=== PATIENT | female | born 1995 | race Caucasian/White ===

== ENCOUNTER 2019-12-13 15:36 | Observation (INO) | payer OTHER, SELFPAY ==
[2019-12-13] VITALS (9 sets, daily range): BP systolic 97–116; BP diastolic 59–71; PULSE 61–101; RESP 14–18; TEMP 36.4–37.5; O2SAT 96–100; BMI 20.1
--- NOTE | 2019-12-13 15:49 | ED.VIS.GEN ---
History of Present Illness Informant: Patient Onset: Days Timing: Intermittent Narrative: 24-year-old female with no past medical history presents with abdominal pain. States 3 days ago she developed bilateral lower quadrant abdominal pain that was sharp and cramping and woke her from sleep. It is occurred intermittently since then but has been less severe. Eating makes it worse. This morning she had 3 episodes of nonbloody diarrhea. Denies fevers, chills, chest pain, dyspnea, cough, nausea, vomiting, or urinary symptoms. She is breast-feeding and LMP was 8 months ago before the of her child. No history of abdominal surgeries. <Khloe Mckeon - Last Filed: 12/13/19 17:51> <Edward Anderson - Last Filed: 12/13/19 22:02> Chief Complaint: Abd Pain Past Medical History Past Medical History: None Surgical History: no surgical history <Khloe Mckeon - Last Filed: 12/13/19 17:51> <Edward Anderson - Last Filed: 12/13/19 22:02> - Allergies and Home Meds Allergies/Adverse Reactions: Allergies No Known Allergies Allergy (Verified 12/13/19 15:37) Review of Systems General: Denies: Chills, Fever, Sweats Eyes: Denies: Visual changes - bilaterally, Diplopia ENT: Denies: Rhinorrhea, Sore throat Cardiovascular: Denies: Chest pain, Palpitations Respiratory: Denies: Dyspnea, Cough, Dyspnea on exertion Gastrointestinal: Reports: Abdominal pain, Diarrhea. Denies: Nausea, Vomiting, Constipation, Melena, Hematochezia Genitourinary: Denies: Dysuria, Hematuria, Frequency Musculoskeletal: Denies: Back pain, Extremity Pain Skin: Denies: Rash, Wounds Neurological: Denies: Headache, Weakness, Numbness <Khloe Mckeon - Last Filed: 12/13/19 17:51> Physical Exam Vital Signs/Narrative: Vital Signs Temp Pulse Resp BP Pulse Ox 12/13/19 15:38 97.8 F 101 H 15 107/71 99 Inital Vital Signs reviewed: Yes General: Well nourished, Well developed, No Acute Distress Head: Normocephalic, Atraumatic Eyes: EOMI ENT: Moist mucous membranes, No rhinorrhea Neck: Supple, Nontender Cardiovascular: Regular rate, Regular rhythm, No murmurs Respiratory: No distress, CTA bilaterally, Chest nontender Abdomen: Soft, Normal bowel sounds, Tender, - - Diffuse abdominal tenderness to palpation, maximal in epigastric and bilateral lower quadrants. Soft with no guarding or rebound.. Negative for: Guarding, Rebound tenderness <Khloe Mckeon - Last Filed: 12/13/19 17:51> Vital Signs/Narrative: Vital Signs Temp Pulse Resp BP Pulse Ox 12/13/19 21:45 98.9 F 76 16 103/66 96 12/13/19 21:30 74 16 108/64 98 12/13/19 21:18 97.6 F L 81 16 102/61 100 12/13/19 20:12 98.8 F 61 14 108/71 99 12/13/19 19:24 98.8 F 91 14 108/71 99 12/13/19 19:00 84 18 108/63 99 <Edward Anderson - Last Filed: 12/13/19 22:02> Diagnostic/Tx/Re-eval Laboratory Data 12/13/19 12/13/19 12/13/19 15:55 15:55 16:00 WBC 12.7 H RBC 4.32 Hgb 12.7 Hct 39.2 MCV 90.7 MCH 29.4 MCHC 32.4 RDW Std Deviation 41.5 RDW Coeff of Maria Guadalupe 12.4 Plt Count 181 MPV 9.5 Immature Gran % (Auto) 0.600 Neut % (Auto) 89.7 H Lymph % (Auto) 5.2 L [place] % (Auto) 4.3 Eos % (Auto) 0.1 Baso % (Auto) 0.1 Absolute Neuts (auto) 11.4 H Absolute Lymphs (auto) 0.66 L Nucleated RBC % 0 Sodium 138 Potassium 3.7 Chloride 106 Carbon Dioxide 24.0 Anion Gap 8 BUN 12 Creatinine 0.74 Estim Creat Clear Calc 104.74 Est GFR (MDRD) Af Amer 124 Est GFR (MDRD) Non-Af 102 BUN/Creatinine Ratio 16.3 Glucose 92 Calcium 9.0 Total Bilirubin 1.20 H AST 13 L ALT 9 L Alkaline Phosphatase 71 Total Protein 7.7 Albumin 3.9 Globulin 3.8 Albumin/Globulin Ratio 1.0 Lipase 61 L Urine Color Yellow Urine Clarity Sl. Cloudy Urine pH 5.0 Ur Specific [place] 1.020 Urine Protein 30 H Urine Glucose (UA) Normal Urine Ketones 50 H Urine Occult Blood 10 H Urine Nitrite Negative Urine Bilirubin 1 H Urine Urobilinogen 1 H Ur Leukocyte Esterase 100 H Urine RBC 0 SEEN Urine WBC 5-10 SEEN Ur Squamous Epith Cells 5-10 SEEN Urine Bacteria RARE Urine Mucus 1+ Urine Test Negative - Medical Decision Making Patient appears well nontoxic. Vital signs show tachycardia of 101, otherwise normal. Abdominal exam has generalized tenderness, maximal over RLQ with no peritoneal signs. Labs show leukocytosis. Mildly elevated total bilirubin. Otherwise chemistry is normal. Urinalysis and hcg negative. CT scan will be obtained to rule out appendicitis. <Khloe Mckeon - Last Filed: 12/13/19 17:51> - Medical Decision Making Patient was seen with the PA. She initially did evaluate her in order lab work. On my examination she had right lower quadrant tenderness. I ordered a CT scan with p.o. and IV contrast. Patient's lab work is reviewed and she has a slight leukocytosis of 12.9. CT abdomen pelvis does show acute appendicitis. Patient was discussed with Dr. Pastor. He took the patient to the OR for appendectomy. She was stable on transfer. Impression: 1. Appendicitis <Edward Anderson - Last Filed: 12/13/19 22:02> ED Disposition <Khloe Mckeon - Last Filed: 12/13/19 17:51> <Edward Anderson - Last Filed: 12/13/19 22:02> - Plan for ED Patient: Disposition: Acute Care [facility]
[2019-12-13] MEDS: Ketorolac 30 MG/ML Syringe IV (16:05)
[2019-12-13 16:06] LABS: Absolute Lymphocyte Count 0.66 X10^3/uL (0.83-4.51); Absolute Neutrophil Count 11.4 X10^3/uL (2.0-7.7); Basophil# 0.01 X10^3/uL; Basophil% 0.1 % (0-1); Eosinophil# 0.01 X10^3/uL; Eosinophils% 0.1 % (0-5); Hematocrit 39.2 % (37-47); Hemoglobin 12.7 g/dL (12.0-15.0); Lymphocyte # 0.66 X10^3/ul (4.0); Lymphocyte % 5.2 % (19-41); Mean Corp Hgb Conc 32.4 g/dL (32-36); Mean Corpuscular Hgb 29.4 pg (27.0-32.0); Mean Corpuscular Volume 90.7 fL (81-99); Mean Platelet Vol. 9.5 fl (6.2-12.0); Monocyte# 0.55 X10^3/uL; Monocyte% 4.3 % (0-10); NRBC Flagged by Analyzer 0 % (0-5); Neutrophil # 11.42 X10^3/uL (2.7-7.7); Neutrophil % 89.7 % (47-70); Platelet Count 181 K/mm3 (150-450); RBC Distribution Width CV 12.4 % (11.6-14.6); RBC Distribution Width SD 41.5 fl (35.1-43.9); Red Blood Count 4.32 M/mm3 (4.2-5.4); White Blood Count 12.7 K/mm3 (4.4-11.0)
[2019-12-13 16:07] LABS: Red Blood Cells-Urine 0 SEEN /hpf (0-5)
[2019-12-13 16:14] LABS: Color, Urine Yellow (Yellow); Glucose, Dipstick Normal (Normal); Internal QC Validated? YES +Cl - CLEAR BKGD; Ketone-Dipstick 50 mg/dl (Negative); Leukocyte Esterase-Dipstick 100 /ul (Negative); Nitrite-Dipstick Negative (Negative); Occult Blood-Urine 10 /ul (Negative); Pregnancy, Urine Negative Negative; Protein-Dipstick 30 mg/dl (Negative); Urine Clarity Sl. Cloudy (Clear); Urine Urobilinogen 1 mg/dl (Normal)
[2019-12-13 16:23] LABS: Urine Bilirubin Dipstick 1 mg/dL (Negative)
[2019-12-13 16:26] LABS: Bacteria RARE /hpf (None Seen); Mucous, Urine 1+ /hpf (<or=2+); Squamous Epithelial Cells - UA 5-10 SEEN /hpf (5-10); White Blood Cells 5-10 SEEN /hpf (0-5)
--- NOTE | 2019-12-13 16:32 | CT_ITS ---
STUDY: CT ABDOMEN AND PELVIS WITH CONTRAST REASON FOR EXAM: Female, 24 years old. Lower abdominal pain. Diarrhea. RADIATION DOSAGE (If Supplied By Facility): CTDIvol = ( 8 ) mGy, DLP = ( 408 ) mGycm TECHNIQUE: Transaxial images were obtained from the dome of the diaphragm to the symphysis pubis with oral contrast. 100 ml of ISOVUE-370 contrast was administered. Sagittal and coronal images were reconstructed. Individualized dose optimization techniques were used for this CT. COMPARISON: None. FINDINGS: The visualized lung bases are clear. The visualized portions of the heart and pericardium are within normal limits. The gallbladder is distended. There are small gallstones noted. The liver is within normal limits. There are no suspicious hepatic lesions. The spleen is normal in size. The pancreas is within normal limits. The adrenal glands are within normal limits. There are no renal or ureteral stones. There is no hydronephrosis. There are no focal renal lesions. Normal visualized stomach. There is no bowel obstruction or inflammation. The appendix is thickened, measuring up to 1 cm. The appendix does not fill with contrast. This is consistent with acute appendicitis. The aorta is normal in caliber. There is no abdominal or pelvic free air, free fluid, fluid collection or lymphadenopathy. There are no destructive osseous lesions. CT/Abdomen/Pelvis WITH Contrast IMPRESSION: Acute appendicitis without evidence of perforation or abscess formation. Distended gallbladder. Gallstones. Normal kidneys. No hydronephrosis. N.B. : The above information has been verbally conveyed by Yobany Cordon to MD Jason, on 12/13/2019 18:52:23 (ET). Electronically Signed: Yobany Cordon, at 18:53 EDT Tel , Service support ,
[2019-12-13 16:51] LABS: AST(SGOT) 13 U/L (15-37); Alanine Aminotransfer ALT/SGPT 9 U/L (13-56); Albumin, Serum 3.9 g/dL (3.2-5.0); Alkaline Phosphatase 71 U/L (45-117); Anion Gap 8 (5-15); BUN 12 mg/dL (7-18); BUN/Creat Ratio 16.3 RATIO (10-20); Chloride 106 mmol/L (98-107); Creatinine, Serum 0.74 mg/dL (0.55-1.02); EST Glomerular Filtration Rate 102 mL/min (>60); Est Glom Filt Rate - Afr Amer 124 mL/min (>60); Estimated Creatinine Clearance 104.74 ml/min; Globulin 3.8 g/dL (2.2-4.2); Glucose 92 mg/dL (74-106); Lipase 61 U/L (73-393); Potassium 3.7 mmol/L (3.5-5.1); Protein, Total 7.7 g/dL (6.4-8.2); Sodium Level 138 mmol/L (136-145)
--- NOTE | 2019-12-13 19:48 | HP.PCM_ITS ---
Problem List (1) Acute appendicitis Status: Acute Qualifiers: Acute appendicitis type: with localized peritonitis Appendicitis perforation presence: unspecified whether perforation present Appendicitis abscess presence: unspecified whether abscess present History of Present Illness Date of Admission: 12/13/19 The patient is a 24 year old F who presents with a 3-day history of abdominal pain. On later in the day she developed diffuse abdominal pain with localization of the right lower quadrant. She has been ill then Sunday and Sunday decided to come to the emergency room. She denies any fever there is been no nausea or vomiting she has had decreased appetite. She tried to eat some for lunch but the pain increased. She has not had a previous illness. She is and breast-feeding her child. She denies any history of gallbladder disease or right upper quadrant pain. Laboratory demonstrates a leukocytosis of 12,000. A CT scan suggested dilated appendix consistent with acute appendicitis. On my personal review it appears that there is a retrocecal component deep in the pelvis with significant amount of periappendiceal change. Is not clear whether this is abscess or perforation or cystic ovarian disease. The patient has not had previous abdominal surgery. 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 Denies: Fever HEENT: Denies: Difficulty Swallowing Cardiovascular: Denies: Chest Pain Respiratory: Denies: Cough, Shortness of Breath Gastrointestinal: Reports: Abdominal Pain, Diarrhea Genitourinary: Denies: Dysuria Neurological: Denies: Balance problems Endocrine: Denies: Change in Body Habitus VTE Information - Inpt Only VTE Present on Admission: No Patient Problems: Active and Suspected Problems Acute appendicitis (Acute) - Physical Exam Vitals/I&O's: Vital Signs Temp Pulse Resp BP Pulse Ox 98.8 F 91 14 108/71 99 12/13/19 19:24 12/13/19 19:24 12/13/19 19:24 12/13/19 19:24 12/13/19 19:24 Oxygen Delivery Method Room Air Weight: 124 lb 12.506 oz Body Mass Index (BMI) 20.1 General: Alert, Oriented x3, Cooperative, No apparent distress HEENT: Atraumatic Oral: Moist Mucosa Neck: Supple Lungs: Clear to auscultation, Normal air movement Cardiovascular: Regular rate, Regular Rhythm Abdomen: Soft, - - Nontender to palpation right upper quadrant, tender to palpation right lower quadrant with fullness, hypoactive bowel sounds Extremities: No Calf Tenderness Skin: No rashes Neurological: - - Normal cognition Psych/Mental Status: Normal Affect Laboratory Results 12/13/19 15:55: WBC 12.7 H, RBC 4.32, Hgb 12.7, Hct 39.2, MCV 90.7, MCH 29.4, MCHC 32.4, RDW Std Deviation 41.5, RDW Coeff of Maria Guadalupe 12.4, Plt Count 181, MPV 9.5, Immature Gran % (Auto) 0.600, Neut % (Auto) 89.7 H, Lymph % (Auto) 5.2 L, [place] % (Auto) 4.3, Eos % (Auto) 0.1, Baso % (Auto) 0.1, Absolute Neuts (auto) 11.4 H, Absolute Lymphs (auto) 0.66 L, Nucleated RBC % 0 12/13/19 15:55: Sodium 138, Potassium 3.7, Chloride 106, Carbon Dioxide 24.0, Anion Gap 8, BUN 12, Creatinine 0.74, Estim Creat Clear Calc 104.74, Est GFR (MDRD) Af Amer 124, Est GFR (MDRD) Non-Af 102, BUN/Creatinine Ratio 16.3, Glucose 92, Calcium 9.0, Total Bilirubin 1.20 H, AST 13 L, ALT 9 L, Alkaline Phosphatase 71, Total Protein 7.7, Albumin 3.9, Globulin 3.8, Albumin/Globulin Ratio 1.0, Lipase 61 L 12/13/19 16:00: Urine Color Yellow, Urine Clarity Sl. Cloudy, Urine pH 5.0, Ur Specific [place] 1.020, Urine Protein 30 H, Urine Glucose (UA) Normal, Urine Ketones 50 H, Urine Occult Blood 10 H, Urine Nitrite Negative, Urine Bilirubin 1 H, Urine Urobilinogen 1 H, Ur Leukocyte Esterase 100 H, Urine RBC 0 SEEN, Urine WBC 5-10 SEEN, Ur Squamous Epith Cells 5-10 SEEN, Urine Bacteria RARE, Urine Mucus 1+, Urine Test Negative Current Medications Lactated Ringer's () 1,000 mls @ 100 mls/hr IV .Q10H ONE Stop: 12/14/19 05:34 Piperacillin Sod/Tazobactam (Sod 4.5 gm/ Sodium Chloride) 100 mls @ 150 mls/hr IV X1 ONE Stop: 12/13/19 20:14 Assessment/Plan All Active Problems Acute appendicitis (Acute) Findings are consistent with acute appendicitis. It appears to be retrocecal deeply located in the pelvis. There may indeed be periappendiceal inflammatory changes. Cannot exclude perforation. I recommended the patient a laparoscopic appendectomy with possible conversion to an open technique if indicated. They are aware of the technique, benefit, risk, alternatives. We discussed COVID-19. They deny any known exposure. They are aware that the [facility] is currently reporting a low local incidence. We will initiate therapeutic antibiotics and proceed with definitive surgery. Camacho Pastor M.D., F.A.C.S.
--- NOTE | 2019-12-13 19:53 | DCINST_ITS ---
Discharge Diet: Light diet - advance as tolerated - if you have questions about your diet instructions, please talk to you doctor. Discharge Activity: May Not Drive - for 1 week or while taking narcotic pain medicine. May shower in (days): 1 Lifting Restrictions: 10 pounds Call your doctor if your incision/area has: Continuous Slow Oozing, Sudden Increased Bleeding, Increased Pain/ Swelling, Increased Redness, Foul Smelling Discharge Call your doctor if you observe: Fever of 101 or Higher Suture Line Care: Avoid Pulling/Pushing, Avoid Pinching/Bending Additional Dressing/Incision Instructions:: Change or remove dressing in 3 days. Leave steri-strips in place for 1 week. Allergies/Adverse Reactions: Allergies No Known Allergies Allergy (Verified 12/13/19 15:37) Medications to take at Discharge NK 12/13/19 Primary Care Physician: Demetrius Penn DO [Primary Care Provider] - Test Results: Test results from this visit will be discussed in further detail at your follow- up appointment, if applicable. Please Follow Up With: Camacho Pastor MD - [phone] When: Call for appt. this may be phone call or virtual or onsite
[2019-12-13] MEDS: Piperacil/Tazobactam 4.5 GM in NS100 MBP IV (19:54)
[2019-12-13] MEDS: Lactated Ringers 1,000 ML 100 ML IV ×2 (19:54→21:40)
--- NOTE | 2019-12-13 20:00 | APP_PTH ---
PATIENT: MALIKA NELSON LOC: MS3 U#:[id number] AGE/SX: 24/F ROOM: MS316 RE12/13/[address]: Dr. Camacho Pastor MD : [id number] BED: 1 DIS: 12/14/2019 SPEC #: [id number] RECD: 12/15/19 09:26 STATUS: FELISHA REDee Dee #: [id number] [place]: 12/13/19 20:[address]: Camacho Pastor DEPT: SURGICAL PATHOLOGY RECD BY: Heladio Panchal ENTERED: 12/15/19 10:58 SP TYPE: APPENDIX OTHR DR: Dr. Demetrius Penn DO Tissues: Appendix, NOS Procedures: Surgery Specimen Level III HEADER OPERATION: Laparoscopic appendectomy PRE-OP DIAGNOSIS: Acute appendicitis TISSUE SUBMITTED: Appendix MICROSCOPIC DIAGNOSIS Appendix, appendectomy: Acute appendicitis. Marked acute serositis. AM:cameron 12/16/19 MICROSCOPIC DESCRIPTION Slides are reviewed. GROSS DESCRIPTION Received in fixative is one container labeled with the patient's name and designated appendix. The specimen consists of an appendix measuring 6 cm in length and varies in diameter from 1 to 1.5 cm. No gross perforations are evident. Serial sections reveal a patent lumen with fecal material. No mass lesion is identified. Rotor Blade Installer sections are submitted in one cassette. / AM:cameron 12/15/19 TC:2 CPT: 11179
[2019-12-13] MEDS: Bupivacaine Mpf 0.5% 30 ML VIAL (20:20)
--- NOTE | 2019-12-13 21:00 | OP.PCM_ITS ---
Problem List (1) Acute appendicitis Status: Acute Qualifiers: Acute appendicitis type: with localized peritonitis Appendicitis perforation presence: with perforation Appendicitis abscess presence: with abscess Report of Operation Date of Procedure: 12/13/19 Pre-Operative Diagnosis: Acute appendicitis Post-Operative Diagnosis: Acute perforated appendicitis with localized peritonitis small abscess Surgery/Procedure Performed:: Laparoscopic appendectomy Description of Surgical Findings:: Timeout and informed consent was obtained. 24-year-old female was taken to the operating room placed upon the table underwent general endotracheal intubation anesthesia. Zosyn 4.5 g were already given intravenously. The abdomen was sterilely prepped and draped. 0.5% Marcaine was used as a local anesthetic. Skin sites were pre-anesthetized. A total of 25 cc was used. A vertical infraumbilical incision was created holding sutures of 0 Vicryl placed varies needle inserted saline drop test performed. The abdomen was insufflated with CO2 to a pressure of 10 mmHg pressure. 10 mm trocar inserted. 10 mm lap aroscope inserted. Under direct physician 5 mm ports were placed suprapubically in the low mid abdomen. Inspection revealed a very low-lying cecum that was grossly distended. Gallbladder was distended but did not appear to be acutely inflamed. The appendix was adherent to the right tube and ovary and there was clear perforation with a small localized abscess. I aspirated as much of the purulence as I could to send for Gram stain culture and sensitivity. I then mobilized the appendix. I made a window in the mesoappendix. Used a 45 mm stapler to transect the appendix flush with the cecum. A vascular height stapler was used to transect the mesoappendix. The appendix was placed in a retrieval bag. The right lower quadrant was inspected. The ind[place]-tubal ovarian area was irrigated aspirated free. There was inflammatory changes but no significant residual abscess wall. No residual purulence. I was able to irrigate and aspirate that free. I elected not to leave a drain. The staple lines were inspected and were nicely intact. The appendix was removed at the umbilicus after antiviral valve decompression. The fascia at the umbilicus approximated with 2-0 Vicryl [id number] suture. Skin edges approximated opted for Monocryl subdermal stitches. Steri-Strips Telfa OpSite dressings applied. Sponge and instrument and needle counts were reported to the surgeon to be correct. Specimens appendix. Abscess fluid for culture and sensitivity. Drains none. Blood loss minimal. Camacho Pastor M.D., F.A.C.S. Type of Anesthesia:: General Anesthesiologist: Tono Longoria
[2019-12-13] MEDS: Ondansetron 4 MG/2 ML Vial IV (22:43)
--- NOTE | 2019-12-13 22:57 | NURSING ---
encouraged to try and find a ride. unable to find a ride. 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 Pt requested a breast pump-notified charge authorizer. Breast pump delivered to room.
--- NOTE | 2019-12-13 23:37 | NURSING ---
pt walked a full lap in the elaine. tolerated well. Returned to bed. SCD's applied.
[2019-12-13] MEDS: 0.9% Saline Lock 10 ML Syringe IV (23:38)
[2019-12-14] VITALS (8 sets, daily range): BP systolic 102–116; BP diastolic 58–72; PULSE 78–97; RESP 16–20; TEMP 36.6–37.2; O2SAT 97–100
--- NOTE | 2019-12-14 06:46 | PN.SURG_ITS ---
Patient Problems: Active and Suspected Problems Acute appendicitis (Acute) Subjective: Postop day 1 The patient states she has a pain level of 2. No nausea. She is really comfortable. No flatus. - Physical Exam Vitals/I&O's: Vital Signs Temp Pulse Resp BP Pulse Ox 98.7 F 96 16 102/58 L 98 12/14/19 02:34 12/14/19 02:34 12/14/19 02:34 12/14/19 02:34 12/14/19 02:34 Oxygen Delivery Method Room Air Weight: 124 lb 12.506 oz Body Mass Index (BMI) 20.1 Intake and Output for Last 24 Hours 12/12/19 12/13/19 12/14/19 23:59 23:59 23:59 Intake Total 1321.67 / 1321.67 1243.33 / 1243.33 Output Total 0 / 0 100 / 100 Balance 1321.67 / 1321.67 1143.33 / 1143.33 General: Alert, Oriented x3, Cooperative, No apparent distress Lungs: Clear to auscultation, Normal air movement Abdomen: Soft, Non Tender, Hypoactive Bowel Sounds, Distended, - - Incisions are clean and dry Laboratory Results 12/13/19 15:55: WBC 12.7 H, RBC 4.32, Hgb 12.7, Hct 39.2, MCV 90.7, MCH 29.4, MCHC 32.4, RDW Std Deviation 41.5, RDW Coeff of Maria Guadalupe 12.4, Plt Count 181, MPV 9.5, Immature Gran % (Auto) 0.600, Neut % (Auto) 89.7 H, Lymph % (Auto) 5.2 L, [place] % (Auto) 4.3, Eos % (Auto) 0.1, Baso % (Auto) 0.1, Absolute Neuts (auto) 11.4 H, Absolute Lymphs (auto) 0.66 L, Nucleated RBC % 0 12/13/19 15:55: Sodium 138, Potassium 3.7, Chloride 106, Carbon Dioxide 24.0, Anion Gap 8, BUN 12, Creatinine 0.74, Estim Creat Clear Calc 104.74, Est GFR (MDRD) Af Amer 124, Est GFR (MDRD) Non-Af 102, BUN/Creatinine Ratio 16.3, Glucose 92, Calcium 9.0, Total Bilirubin 1.20 H, AST 13 L, ALT 9 L, Alkaline Phosphatase 71, Total Protein 7.7, Albumin 3.9, Globulin 3.8, Albumin/Globulin Ratio 1.0, Lipase 61 L 12/13/19 16:00: Urine Color Yellow, Urine Clarity Sl. Cloudy, Urine pH 5.0, Ur Specific [place] 1.020, Urine Protein 30 H, Urine Glucose (UA) Normal, Urine Ketones 50 H, Urine Occult Blood 10 H, Urine Nitrite Negative, Urine Bilirubin 1 H, Urine Urobilinogen 1 H, Ur Leukocyte Esterase 100 H, Urine RBC 0 SEEN, Urine WBC 5-10 SEEN, Ur Squamous Epith Cells 5-10 SEEN, Urine Bacteria RARE, Urine Mucus 1+, Urine Test Negative 12/14/19 05:34: WBC Pending, RBC Pending, Hgb Pending, Hct Pending, MCV Pending, MCH Pending, MCHC Pending, RDW Std Deviation Pending, RDW Coeff of Maria Guadalupe Pending, Plt Count Pending, Neut % (Auto) Pending, Absolute Neuts (auto) Pending Current Medications Acetaminophen (Tylenol) 650 mg PO Q6H PRN PRN PRN Reason: Pain Score 1-10/10 Piperacillin Sod/Tazobactam (Sod 3.375 gm/ Sodium Chloride) 50 mls @ 12.5 mls/hr IV Q8 LITTLE Last Admin: 12/14/19 05:53 Dose: 12.5 mls/hr Documented by: Sodium Chloride () 250 mls @ 15 mls/hr IV .[id number] PRN PRN Reason: Saline Flush Sodium Chloride () 250 mls @ 15 mls/hr IV .[id number] PRN PRN Reason: Additional IVPB Infusion Sodium Chloride () 250 mls @ 15 mls/hr IV .[id number] PRN PRN Reason: Saline Flush Sodium Chloride () 250 mls @ 15 mls/hr IV .[id number] PRN PRN Reason: Additional IVPB Infusion Morphine Sulfate () 2 - 4 mg IV Q2H PRN PRN PRN Reason: Pain Score 1-10/10 Morphine Sulfate () 2 - 4 mg IV Q2H PRN PRN PRN Reason: Pain Score 1-10/10 Ondansetron HCl (Zofran) 4 mg IV Q8H PRN PRN PRN Reason: NAUSEA Last Admin: 12/13/19 22:43 Dose: 4 mg Documented by: Oxycodone HCl (Oxyir) 5 - 10 mg PO Q4H PRN PRN PRN Reason: Pain Score 1-10/10 Sodium Chloride () 10 - 40 ml IV UD PRN PRN Reason: SALINE FLUSH Last Admin: 12/13/19 23:38 Dose: 10 ml Documented by: Medical Necessity - Tobacco Use Smoking Status: Never smoker Tobacco Use: Non-smoker Assessment/Plan All Active Problems Acute appendicitis (Acute) Patient is making steady progress status post laparoscopic appendectomy for locally perforated appendicitis. Laboratories pending. I will advance to full liquids. Patient is continued to encouraged to mobilize. I will recheck with the patient later today. Pending progress may be able to discharge later. Camacho Pastor M.D., F.A.C.S.
[2019-12-14 06:48] LABS: Absolute Lymphocyte Count 0.78 X10^3/uL (0.83-4.51); Basophil# 0.02 X10^3/uL; Basophil% 0.2 % (0-1); Eosinophil# 0.01 X10^3/uL; Eosinophils% 0.1 % (0-5); Hematocrit 34.9 % (37-47); Hemoglobin 11.1 g/dL (12.0-15.0); Lymphocyte # 0.78 X10^3/ul (4.0); Lymphocyte % 9.5 % (19-41); Mean Corp Hgb Conc 31.8 g/dL (32-36); Mean Corpuscular Hgb 29.4 pg (27.0-32.0); Mean Corpuscular Volume 92.6 fL (81-99); Mean Platelet Vol. 10.4 fl (6.2-12.0); Monocyte# 0.38 X10^3/uL; Monocyte% 4.6 % (0-10); NRBC Flagged by Analyzer 0 % (0-5); Platelet Count 160 K/mm3 (150-450); RBC Distribution Width CV 12.6 % (11.6-14.6); RBC Distribution Width SD 42.5 fl (35.1-43.9); Red Blood Count 3.77 M/mm3 (4.2-5.4); White Blood Count 8.2 K/mm3 (4.4-11.0)
[2019-12-14] MEDS: Acetaminophen 325 MG Tablet 650 MG PO ×2 (07:44→15:50)
--- NOTE | 2019-12-14 14:41 | NURSING ---
1413 Dr Pastor called about pt progress report- see physician notification intervention. Shaggy Solorio RN
== END 2019-12-14 19:00 | disposition home or self-care (01) ==
LOC: ED 16:16 → SDC 19:18 → MS3 19:19 → SDC 22:15 → MS3 22:15
PROVIDERS: Admitting Provider Surgery; Emergency Provider Physician Assistant; PCP Family Medicine; Visit Provider Surgery
PROC: 0DTJ4ZZ Resection of Appendix, Percutaneous Endoscopic Approach (ICD-10-PCS; CPT 44970; principal; 2019-12-13 20:00)
DX: K35.21 Acute appendicitis with generalized peritonitis, with abscess (principal)
CPT/HCPCS: 44970; 74177; 80053; 81001; 81025; 83690; 85025; 87070; 87075; 87077; 87186; 87205; 88304; 96361; 96365; 96366; 96375; 99218; 99284; J7030; J7120; Q9967; A4216; G0378; J2405